=== PATIENT | male | born 1990 ===

== ENCOUNTER 2017-07-04 07:26 | Day surgery (SDC) | payer OTHER ==
[2017-07-04] MEDS: BUPIVACAINE 0.25% (MPF) 30 ML INJ
[2017-07-04] MEDS ORDERED: CEFAZOLIN 2 GM/50 ML (PMX) 50 ML IVPB (08:30)
[2017-07-04] MEDS ORDERED: LACTATED RINGER'S 1,000 ML IV* (08:30)
[2017-07-04] MEDS ORDERED: GELATIN SIZE 100 SPONGE (10:20)
[2017-07-04] MEDS ORDERED: NEOSTIGMINE 3 MG/3 ML SYRINGE (10:49)
[2017-07-04] MEDS ORDERED: ROCURONIUM 50 MG INJ (10:49)
[2017-07-04] MEDS ORDERED: GLYCOPYRROLATE 0.4 MG INJ (10:49)
[2017-07-04] MEDS ORDERED: ONDANSETRON 4 MG INJ (10:49)
[2017-07-04] MEDS ORDERED: CEFAZOLIN 1 GM INJ (10:49)
[2017-07-04] MEDS ORDERED: PROPOFOL 20 ML (10:49)
[2017-07-04] MEDS ORDERED: DEXAMETHASONE 4 MG/ML 1 ML INJ (10:49)
[2017-07-04] MEDS ORDERED: MIDAZOLAM 1 MG/ML 2 ML INJ (10:49)
[2017-07-04] MEDS ORDERED: MIDAZOLAM 1 MG/ML 2 ML INJ IV (12:00)
[2017-07-04] MEDS ORDERED: ONDANSETRON 4 MG INJ IV ×2 (12:00→14:00)
[2017-07-04] MEDS ORDERED: OXYCODONE/ACETAMINOPHEN (5/325) TAB PO ×2 (12:00)
[2017-07-04] MEDS ORDERED: TRIMETHOBENZAMIDE 100 MG/ML VIAL IM (12:00)
[2017-07-04] MEDS ORDERED: HYDROmorphONE (0.2 MG/ML) 10ML SYG IV ×2 (12:00)
[2017-07-04] MEDS ORDERED: FENTAnyl 50 MCG/ML VIAL IV ×2 (12:00)
[2017-07-04] MEDS ORDERED: EPHEDrine SULFATE 50 MG/5 ML SYG IV (12:00)
[2017-07-04] MEDS ORDERED: hydrALAzine 20 MG INJ IV (12:00)
[2017-07-04] MEDS ORDERED: MEPERIDINE 25 MG INJ IV (12:00)
[2017-07-04] MEDS ORDERED: LABETALOL HCL 20MG INJ IV (12:00)
[2017-07-04] MEDS ORDERED: DIPHENHYDRAMINE 50 MG INJ IV (12:00)
[2017-07-04] MEDS ORDERED: IPRATROPIUM (NEB) 0.5 MG/2.5 ML AMP HHN (12:00)
[2017-07-04] MEDS ORDERED: ALBUTEROL 0.083% (NEB) 2.5 MG/3 ML AMP HHN (12:00)
[2017-07-04] MEDS: BUPIVACAINE 0.25%/EPI (SDV) 30 ML INJ INJ (12:21)
[2017-07-04] MEDS: THROMBIN 5000 UNIT VIAL (12:22)
[2017-07-04] MEDS: POLYMYXIN/BACITRACIN 1L IRRIG (12:22)
[2017-07-04] MEDS ORDERED: SUGAMMADEX SODIUM 200 MG/2 ML VIAL IV (13:32)
[2017-07-04] MEDS: BETAMET NA PHOS/AC(6 MG/ML) 5ML INJ (13:55)
[2017-07-04] MEDS: FENTAnyl 50 MCG/ML VIAL IV ×2 (13:58→14:11)
[2017-07-04] MEDS ORDERED: PROCHLORPERAZINE 10 MG TAB PO (14:00)
[2017-07-04] MEDS ORDERED: HYDROCODONE/APAP (5/325) TAB PO (14:00)
[2017-07-04] MEDS: HYDROmorphONE (0.2 MG/ML) 10ML SYG IV (14:18)
[2017-07-04] MEDS: HYDROCODONE/APAP (5/325) TAB PO (15:49)
== END 2017-07-04 16:00 | disposition home or self-care (01) ==
LOC: SDS 07:26
DX: M51.16 Intervertebral disc disorders with radiculopathy, lumbar region (principal)
CPT/HCPCS: 63030; 72100; 97161